=== PATIENT | male | born 1985 | race Caucasian/White ===

== ENCOUNTER 2017-10-24 21:12 | Emergency (ER) | payer OTHER ==
[~2017-10-24] VITALS: Ht 175.3 cm; Wt 86.2 kg
[~2017-10-24 21:12] MED LIST: ACET325 PO; Bactrim Ds Tab1 EACH PO; CEPH500 PO; CYCL10 PO; HYDACE5 PO; HYDACE5325 PO; IBUP400 PO; IBUP800 PO; Keflex500 MG PO; METPRE4DP PO; NAPR500 PO; NEOPOLHCSU RIGHTEAR; Naprosyn500 MG PO; Norco 5-325 Ta1 EACH PO; Percocet 5-3251 EACH PO; Prednisone20 MG PO; RXCYCL10 PO; RXHYD5325 PO; SULTRIDS PO; Sulfamethoxazo1 EAC4 PO; Valium5 MG PO
[2017-10-24] MEDS ORDERED: Cyclobenzaprine5 MG PO (21:37)
== END 2017-10-24 22:05 | disposition home or self-care (01) ==
LOC: ER 21:12
DX: M54.42 Lumbago with sciatica, left side (principal); M54.41 Lumbago with sciatica, right side; F17.200 Nicotine dependence, unspecified, uncomplicated; Z79.899 Other long term (current) drug therapy
CPT/HCPCS: 96372; 99283; J1885

== ENCOUNTER 2018-01-20 22:18 | Emergency (ER) | payer OTHER ==
[~2018-01-20] VITALS: Ht 175.3 cm; Wt 83.9 kg
[~2018-01-20 22:18] MED LIST changes: +Cyclobenzaprine5 MG PO
[2018-01-21] MEDS ORDERED: Bactrim Ds Tab1 EACH PO (05:03)
== END 2018-01-21 05:11 | disposition home or self-care (01) ==
LOC: ER 22:18
DX: L02.11 Cutaneous abscess of neck (principal); M79.605 Pain in left leg; F17.210 Nicotine dependence, cigarettes, uncomplicated
CPT/HCPCS: 10061; 96372; 99283; J1885

== ENCOUNTER 2019-09-10 12:17 | Emergency (ER) | payer OTHER ==
[~2019-09-10] VITALS: Ht 175.3 cm; Wt 81.7 kg
[2019-09-10] MEDS ORDERED: Robaxin-750750 MG PO (14:17)
== END 2019-09-10 14:24 | disposition home or self-care (01) ==
LOC: ER 12:17
DX: M62.838 Other muscle spasm (principal); F17.210 Nicotine dependence, cigarettes, uncomplicated; V49.59XA Passenger injured in collision with other motor vehicles in traffic accident, initial encounter
CPT/HCPCS: 99283

== ENCOUNTER 2023-02-21 00:19 | Emergency (ER) | payer OTHER ==
[~2023-02-21] VITALS: Ht 175.3 cm; Wt 92.1 kg
[~2023-02-21 00:19] MED LIST changes: +Robaxin-750750 MG PO
[2023-02-21 02:02] VITALS: BP 165/110
[2023-02-21] MEDS ORDERED: Mupirocin22 GM TOP (02:07)
[2023-02-21] MEDS ORDERED: CLIN300 PO (02:07)
== END 2023-02-21 02:13 | disposition home or self-care (01) ==
LOC: ER 00:19
DX: L03.211 Cellulitis of face (principal); L03.116 Cellulitis of left lower limb; I10 Essential (primary) hypertension; F17.210 Nicotine dependence, cigarettes, uncomplicated
CPT/HCPCS: 99282; A9270

== ENCOUNTER 2023-03-09 15:05 | Emergency (ER) | payer OTHER ==
[~2023-03-09] VITALS: Ht 175.3 cm; Wt 92.5 kg
[~2023-03-09 15:05] MED LIST changes: +CLIN300 PO; +Mupirocin22 GM TOP
[2023-03-09 15:43] VITALS: BP 159/99
[2023-03-09] MEDS ORDERED: SULTRIDS PO (17:53)
[2023-03-09] MEDS ORDERED: LEVO750 PO (17:53)
== END 2023-03-09 18:07 | disposition home or self-care (01) ==
LOC: ER 15:05
DX: L98.9 Disorder of the skin and subcutaneous tissue, unspecified (principal); F17.210 Nicotine dependence, cigarettes, uncomplicated
CPT/HCPCS: 99282; A9270

== ENCOUNTER 2023-04-11 13:50 | Emergency (ER) | payer OTHER ==
[~2023-04-11] VITALS: Ht 170.2 cm; Wt 79.4 kg
[~2023-04-11 13:50] MED LIST changes: +LEVO750 PO
[2023-04-11 14:05] VITALS: BP 151/91
[2023-04-11] MEDS ORDERED: BACITO TOP (14:09)
[2023-04-11] MEDS ORDERED: Keflex500 MG PO (14:09)
== END 2023-04-11 14:30 | disposition home or self-care (01) ==
LOC: ER 13:50
DX: H60.12 Cellulitis of left external ear (principal); F17.210 Nicotine dependence, cigarettes, uncomplicated
CPT/HCPCS: 99283

== ENCOUNTER 2023-08-22 01:05 | Emergency (ER) | payer OTHER ==
[~2023-08-22] VITALS: Ht 175.3 cm; Wt 93.0 kg
[~2023-08-22 01:05] MED LIST changes: +BACITO TOP
[2023-08-22 01:22] VITALS: BP 158/98
[2023-08-22] MEDS ORDERED: Keflex500 MG PO (02:49)
== END 2023-08-22 03:10 | disposition home or self-care (01) ==
LOC: ER 01:05
DX: N49.2 Inflammatory disorders of scrotum (principal); F17.210 Nicotine dependence, cigarettes, uncomplicated; Z79.2 Long term (current) use of antibiotics
CPT/HCPCS: 82947; 99283; A9270